=== PATIENT | female | born 1970 | race African-American/Black ===

== ENCOUNTER 2021-11-16 09:08 | Emergency (ER) | payer BC, SELFPAY ==
[2021-11-16] MEDS ORDERED: Ondansetron ODT 4 MG TAB ONE ×2 (09:47→09:52)
[2021-11-16] MEDS ORDERED: Meclizine HCl 25 MG TAB ONE (09:47)
== END 2021-11-16 10:48 | disposition home or self-care (01) ==
LOC: CSHERS 09:08
DX: H81.393 Other peripheral vertigo, bilateral (principal)
CPT/HCPCS: 93005; 99283; Q0162

== ENCOUNTER 2024-07-23 18:00 | Emergency (ER) | payer BC ==
[2024-07-23] MEDS ORDERED: Prochlorperazine 10 MG/2 ML VIAL ONE (18:21)
[2024-07-23] MEDS ORDERED: diphenhydrAMINE 50 MG/ML VIAL ONE (18:21)
[2024-07-23] MEDS ORDERED: Dexamethasone 10 MG/ML VIAL ONE (18:21)
[2024-07-23] MEDS ORDERED: Acetaminophen 325 MG TAB ONE (18:22)
[2024-07-23 18:26] LABS: #Basophils 0.05 10x3/uL (0.0-0.2); #Eosinophils 0.24 10x3/uL (0.0-0.5); #Monocytes 0.83 10x3/uL (0.0-1.1); #Neutrophils 3.38 10x3/uL (1.5-8.4); %Basophils 0.7 % (0.0-2.0); %Eosinophils 3.3 % (0.0-6.0); %Lymphocytes 37.1 % (18.0-47.0); %Monocytes 11.5 % (0.0-10.0); %Neutrophils 47.1 % (40.0-75.0); Hematocrit 33.5 % (34.9-44.5); Hemoglobin 11.1 g/dL (12.0-15.5); Mean Corpuscular HGB CONC 33.1 g/dL (32.0-36.0); Mean Corpuscular Hemoglobin 28.4 pg (27.0-33.0); Mean Corpuscular Volume 85.7 fL (81.6-98.3); Mean Platelet Volume 10.1 fL (7.4-10.4); Platelet Count 314 10x3/uL (150-450); RBC Distribution Width 16.7 % (11.5-14.5); Red Blood Cell (RBC) Count 3.91 10x6/uL (3.90-5.03); White Blood Cell (WBC) Count 7.19 10x3/uL (3.5-10.5)
[2024-07-23 18:42] LABS: ALT (SGPT) 17 U/L (8-55); AST (SGOT) 18 U/L (5-34); Albumin 3.8 g/dL (3.5-5.0); Alkaline Phosphatase 84 U/L (40-110); Anion Gap 13 mmol/L (10-20); BUN (Urea Nitrogen) 12 mg/dL (9.8-20.1); Bilirubin, Total 0.3 mg/dL (0.2-1.2); Calc. Creatinine Clearance 0 mL/min (70-130); Calcium 8.9 mg/dL (7.8-10.44); Carbon Dioxide 25 mmol/L (22-29); Chloride 109 mmol/L (98-107); Estimated GFR 94; Globulin 4.1 g/dL (2.4-3.5); Glucose 74 mg/dL (70-105); Magnesium 1.9 mg/dL (1.6-2.6); Potassium 3.6 mmol/L (3.5-5.1); Protein, Total 7.9 g/dL (6.0-8.3); Sodium 143 mmol/L (136-145)
== END 2024-07-23 19:06 | disposition home or self-care (01) ==
LOC: CSHERS 18:00
DX: I10 Essential (primary) hypertension (principal); R29.700 NIHSS score 0
CPT/HCPCS: 80053; 83735; 83880; 84443; 85025; 93005; 96374; 96375; J0780; J1100; J1200

== ENCOUNTER 2024-08-05 07:51 | Emergency (ER) | payer BC ==
[2024-08-05] MEDS ORDERED: Ibuprofen 200 MG TAB ONE (08:30)
== END 2024-08-05 10:11 | disposition home or self-care (01) ==
LOC: CSHERS 07:51
DX: J11.1 Influenza due to unidentified influenza virus with other respiratory manifestations (principal); E66.9 Obesity, unspecified; R11.0 Nausea; I10 Essential (primary) hypertension; M79.7 Fibromyalgia
CPT/HCPCS: 87428; 99283